=== PATIENT | female | born 1970 | race Caucasian/White ===

== ENCOUNTER 2016-12-02 16:43 | Inpatient (IN) | payer OTHER ==
--- NOTE | 2016-12-02 17:00 | ED EKG INTERP ---
EKG Interpretation - EKG Time of EKG reading by physician:: 16:58 EKG Read and Signed by:: Katerine Dillard EKG Interpretation (*Must complete 3 of following elements*): Abnormal (cannot rule out anterior infarct age undetermined) Rate: 87 Rhythm: nsr [place]: normal QRS: normal Attestation - Scribe Verification/Attestation Scribe:: Orquidea Massey Acting as Scribe for:: Katerine Dillard Scribe documention review:: This chart was documented by a scribe and accurately reflects the service the provider performed and the decisions made by the provider. Physician Attestation - Physician Attestation I, the provider, attest to the following statement:: Katerine Dillard Physician documentation Attestation:: This documentation recorded by the scribe accurately reflects the service I personally performed and the decisions made by me.
[2016-12-02] MEDS ORDERED: NS 1,000 ML IV PRN (17:03)
[2016-12-02 17:25] LABS: BASO% 0.3 % (0.0-0.8); EOS# 0.11 X1000 (0.0-0.7); EOS% 2.9 % (0.0-10.0); HEMATOCRIT 18.5 % (37.0-47.0); LYMPH# 1.63 X1000 (1.2-3.4); LYMPH% 43.6 % (20.5-51.1); MCH 18.4 PG (27-31); MCHC 28.1 g/dL (33-37); MCV 65.4 FL (81-99); NEUT% 45.2 % (42.2-75.2); PLT 177 X1000 (130-400); RBC 2.83 XMIL (4.2-5.4)
[2016-12-02 17:26] LABS: MANUAL DIFF NEEDED? NO
[2016-12-02 17:40] LABS: AGAP 12; ALBUMIN 3.3 g/dL (3.5-5.0); ALKALINE PHOSPHATASE 85 U/L (32-104); BUN 17 mg/dL (8-22); CALCIUM 8.6 mg/dL (8.8-10.2); CHLORIDE 101 mmol/L (98-107); COSMO 274; GOT 15 U/L (10-30); GPT 16 U/L (10-36); POTASSIUM 4.2 mmol/L (3.5-5.1); SODIUM 136 mmol/L (136-145); TCO2 23 mmol/L (25-35); TOTAL BILIRUBIN < 0.10 mg/dL (0.20-1.00)
[2016-12-02 17:46] LABS: INR 0.96; PROTIME 9.8 Seconds (9.2-11.7); PTT 27.6 Seconds (22.0-36.0)
--- NOTE | 2016-12-02 17:49 | PROVIDER DOCUMENTATION ---
HPI-General Adult - General Chief Complaint: Weakness Stated Complaint: WEAKNESS,LOW BLOOD Time Seen by Provider: 12/02/16 17:39 Source: patient Allergies/Adverse Reactions: Patient Allergies Allergy/AdvReac Type Severity Reaction Status Date / Time No Known Allergies Allergy Verified 09/21/13 15:13 Home Medications: Home Medication List Medication Instructions Recorded Confirmed Last Taken Type Hydrocodone/APAP 10 mg/325 mg 1 each PO Q8H #0 tablet 07/24/15 Unknown Rx [[place]-10] Lidocaine/Prilocaine Cream [Emla 0 gm TOP PRN PRN #0 tube 07/24/15 Unknown Rx Cream] Ondansetron [Zofran] 4 mg IV Q6H PRN PRN #0 vial 07/24/15 Unknown Rx Pregabalin [Lyrica] 225 mg PO BID #0 capsule 07/24/15 Unknown Rx Tizanidine [Zanaflex] 4 mg PO QHS #0 tablet 07/24/15 Unknown Rx Tramadol E.r. [Ultram ER] 200 mg PO DAILY #0 tablet 07/24/15 Unknown Rx - History of Present Illness -Gen Adult Nature of Presenting Problems: 45 y/o F with history of neuropathy, PUD with anemia presents with complaint of weakness, N/V, epigastric pain x 1 week. Epigastric pain occurs only after eating. Pain began after taking stanbacks for back pain. Emesis described as food, denies hematemesis or coffee ground emesis. Last BM 2 days ago (black unsure if black stools started before or after pepto). Reports associated weakness and SOB. She has been taking pepto and zantac OTC since onset of symptoms. Patient has had multiple blood transfusions in the past for anemia with the last being 3 years ago. She has been off daily PPI therapy for 3 years she is not on iron. GI in the past has been Dr. Bradley. Last EGD 2013. No PCP. 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 Location of Pain/Injury: reports: abdomen (epigastric) Pain Radiation: reports: no radiation Quality of Pain: reports: aching Severity: reports: moderate Onset/Duration: reports: 1 week ago Timing: reports: intermittent Review of Systems - Adult - REVIEW OF SYSTEMS - ADULT Constitutional: reports: no symptoms reported. denies: chills, fever Eyes: reports: no symptoms reported. denies: decreased vision, blurred vision Ears, Nose, Mouth & Throat: reports: no symptoms reported. denies: ear pain, hearing loss Cardiovascular: reports: chest pain (occasional. last time yesterday) Respiratory: reports: dyspnea on exertion, shortness of breath. denies: cough, wheezing Gastrointestinal: reports: abdominal pain (epigastric), nausea, vomiting Genitourinary: reports: no symptoms reported. denies: dysuria, hematuria Musculoskeletal: reports: no symptoms reported Integumentary: reports: no symptoms reported. denies: itching, rash Neurological: reports: no symptoms reported. denies: dizziness/vertigo, headache/migraines Psychiatric: reports: no symptoms reported Endocrine: reports: no symptoms reported Hematologic/Lymphatic: reports: see HPI Allergic/Immunologic: reports: no symptoms reported All Other Systems: Reviewed and Negative Past History - Adult - PAST MEDICAL HISTORY-ADULT Review of Records: reports: Nursing Assessment Review, Medications Reviewed Physical Exam-General - PHYSICAL EXAM-ADULT Initial Vital Signs Reviewed: Yes - CONSTITUTIONAL General Appearance: alert, no apparent distress, other (pale) - EYES Eyes: PERRL/EOMI, pink conjunctivae - HEAD, EARS, NOSE, MOUTH & THROAT HENMT: normocephalic/atraumatic, moist mucous membranes - NECK Neck: non-tender, full range of motion, supple - RESPIRATORY Respiratory: chest non-tender, lungs clear, normal breath sounds, no pleuratic chest pain, no respiratory distress, no accessory muscle use - CARDIOVASCULAR Cardiovascular: normal peripheral pulses, regular rate, rhythm, no edema, no gallop, no JVD, no murmur - GASTROINTESTINAL (ABDOMEN) Abdominal Exam: normal bowel sounds, non tender, soft - GENITOURINARY Rectal Exam: normal exam, normal rectal tone. negative: blood streaked stool, hemorrhoids - LYMPHATIC Lymphatic: no adenopathy - SKIN Integumentary: normal turgor, warm/dry, pallor - NEUROLOGIC Neurologic: grossly normal, no motor/sensory deficits - PSYCHIATRIC Psych/Mental Status: normal mood/affect, normal thought content, normal thought process, oriented x 3 Progress - PLAN OF CARE/RESULTS Progress/Plan/Lab Results: Laboratory Tests 12/02/16 12/02/16 12/02/16 17:02 17:02 17:02 WBC 3.74 L RBC 2.83 L Hgb 5.2 L* Hct 18.5 L MCV 65.4 L MCH 18.4 L MCHC 28.1 L RDW Std Deviation 17.1 H Plt Count 177 MPV 10.0 Immature Gran % (Auto) 0.0 Neut % (Auto) 45.2 Lymph % (Auto) 43.6 [place] % (Auto) 8.0 Eos % (Auto) 2.9 Baso % (Auto) 0.3 Immature Gran # (Auto) 0.00 Neut # (Auto) 1.69 Lymph # (Auto) 1.63 [place] # (Auto) 0.30 Eos # (Auto) 0.11 Baso # (Auto) 0.01 Segmented Neutrophils Cancelled Band Neutrophils Cancelled Lymphocytes Cancelled Monocytes Cancelled Eosinophils Cancelled Basophils Cancelled Metamyelocytes Cancelled Myelocytes Cancelled Promyelocytes Cancelled Nucleated RBCs Cancelled Atypical Lymphocytes Cancelled Blast Cells Cancelled Hypochromia Cancelled Vacuolization Cancelled Toxic Granulation Cancelled Dohle Bodies Cancelled Large Platelets Cancelled Polychromasia Cancelled Poikilocytosis Cancelled Basophilic Stippling Cancelled Anisocytosis Cancelled Microcytosis Cancelled Macrocytosis Cancelled Spherocytes Cancelled Sickle Cells Cancelled Target Cells Cancelled Ovalocytes Cancelled Stomatocytes Cancelled Garcia-Pease Bodies Cancelled Tracy Cells Cancelled Unidentified Cells Cancelled Schistocytes Cancelled PT 9.8 INR 0.96 PTT (Actin FS) 27.6 Sodium 136 Potassium 4.2 Chloride 101 Carbon Dioxide 23 L Anion Gap 12 BUN 17 Creatinine 0.6 Estimated GFR/1.73 m2 > 60 BUN/Creatinine Ratio 28 Glucose 104 Calculated Osmolality 274 Calcium 8.6 L Total Bilirubin < 0.10 L AST 15 ALT 16 Alkaline Phosphatase 85 Total Protein 6.0 L Albumin 3.3 L Globulin 2.7 Albumin/Globulin Ratio 1.2 Blood Type Antibody Screen Crossmatch 12/02/16 17:02 WBC RBC Hgb Hct MCV MCH MCHC RDW Std Deviation Plt Count MPV Immature Gran % (Auto) Neut % (Auto) Lymph % (Auto) [place] % (Auto) Eos % (Auto) Baso % (Auto) Immature Gran # (Auto) Neut # (Auto) Lymph # (Auto) [place] # (Auto) Eos # (Auto) Baso # (Auto) Segmented Neutrophils Band Neutrophils Lymphocytes Monocytes Eosinophils Basophils Metamyelocytes Myelocytes Promyelocytes Nucleated RBCs Atypical Lymphocytes Blast Cells Hypochromia Vacuolization Toxic Granulation Dohle Bodies Large Platelets Polychromasia Poikilocytosis Basophilic Stippling Anisocytosis Microcytosis Macrocytosis Spherocytes Sickle Cells Target Cells Ovalocytes Stomatocytes Garcia-Pease Bodies Tracy Cells Unidentified Cells Schistocytes PT INR PTT (Actin FS) Sodium Potassium Chloride Carbon Dioxide Anion Gap BUN Creatinine Estimated GFR/1.73 m2 BUN/Creatinine Ratio Glucose Calculated Osmolality Calcium Total Bilirubin AST ALT Alkaline Phosphatase Total Protein Albumin Globulin Albumin/Globulin Ratio Blood Type A NEGATIVE Antibody Screen NEGATIVE Crossmatch See Detail Orders Category Date Time Status Saline Loc DIRECTED Care 12/02/16 17:03 Active Transfuse .Give-Transfuse Care 12/02/16 18:23 Active CHEST-2 VIEWS [RAD] Stat Exams 12/02/16 17:52 Taken CBC WITH ELECTRONIC DIFF [HEME] Stat Lab 12/02/16 17:02 Completed COMPREHENSIVE METABOLIC PANEL [CHEM] Stat Lab 12/02/16 17:02 Completed OCCULT BLOOD NON-FECES Stat Lab 12/02/16 17:03 Uncollected OCCULT BLOOD SCREENING [STOOL] Stat Lab 12/02/16 17:03 Uncollected PRBC [LRPC (RED CELLS)] [BBK] Stat Lab 12/02/16 17:02 Results PROTIME WITH INR [COAG] Stat Lab 12/02/16 17:02 Completed PTT [COAG] Stat Lab 12/02/16 17:02 Completed TROPONIN T Stat Lab 12/02/16 17:55 Ordered TYPE & SCREEN [BBK] Stat Lab 12/02/16 17:02 Results 0.9% Sodium Chloride Inj [Ns] 1,000 ml Med 12/02/16 17:03 Active IV 125 mls/hr Ondansetron [Zofran] Med 12/02/16 17:54 Discontinued 4 mg IV NOW ONE Pantoprazole [Protonix] Med 12/02/16 17:54 Discontinued 40 mg IV NOW ONE Sodium Chloride 0.9% Med 12/02/16 17:54 Discontinued 10 ml INJ NOW ONE EKG [EKG] Stat Ther 12/02/16 17:52 Ordered Vital Signs Temp Pulse Resp BP Pulse Ox 12/02/16 16:54 98.3 F 90 18 145/87 100 No Known Allergies Allergy (Verified 09/21/13 15:13) Hydrocodone/APAP 10 mg/325 mg [[place]-10] 1 each PO Q8H #0 tablet 07/24/15 Lidocaine/Prilocaine Cream [Emla Cream] 0 gm TOP PRN PRN #0 tube 07/24/15 Ondansetron [Zofran] 4 mg IV Q6H PRN PRN #0 vial 07/24/15 Pregabalin [Lyrica] 225 mg PO BID #0 capsule 07/24/15 Tizanidine [Zanaflex] 4 mg PO QHS #0 tablet 07/24/15 Tramadol E.r. [Ultram ER] 200 mg PO DAILY #0 tablet 07/24/15 Laboratory 12/02/16 12/02/16 12/02/16 17:02 17:02 17:02 WBC RBC Hgb Hct MCV MCH MCHC RDW Std Deviation Plt Count MPV Immature Gran % (Auto) Neut % (Auto) Lymph % (Auto) [place] % (Auto) Eos % (Auto) Baso % (Auto) Immature Gran # (Auto) Neut # (Auto) Lymph # (Auto) [place] # (Auto) Eos # (Auto) Baso # (Auto) Segmented Neutrophils Band Neutrophils Lymphocytes Monocytes Eosinophils Basophils Metamyelocytes Myelocytes Promyelocytes Nucleated RBCs Atypical Lymphocytes Blast Cells Hypochromia Vacuolization Toxic Granulation Dohle Bodies Large Platelets Polychromasia Poikilocytosis Basophilic Stippling Anisocytosis Microcytosis Macrocytosis Spherocytes Sickle Cells Target Cells Ovalocytes Stomatocytes Garcia-Pease Bodies Tracy Cells Unidentified Cells Schistocytes PT 9.8 INR 0.96 PTT (Actin FS) 27.6 Sodium 136 Potassium 4.2 Chloride 101 Carbon Dioxide 23 L Anion Gap 12 BUN 17 Creatinine 0.6 Estimated GFR/1.73 m2 > 60 BUN/Creatinine Ratio 28 Glucose 104 Calculated Osmolality 274 Calcium 8.6 L Total Bilirubin < 0.10 L AST 15 ALT 16 Alkaline Phosphatase 85 Total Protein 6.0 L Albumin 3.3 L Globulin 2.7 Albumin/Globulin Ratio 1.2 Blood Type A NEGATIVE Antibody Screen NEGATIVE Crossmatch See Detail 12/02/16 17:02 WBC 3.74 L RBC 2.83 L Hgb 5.2 L* Hct 18.5 L MCV 65.4 L MCH 18.4 L MCHC 28.1 L RDW Std Deviation 17.1 H Plt Count 177 MPV 10.0 Immature Gran % (Auto) 0.0 Neut % (Auto) 45.2 Lymph % (Auto) 43.6 [place] % (Auto) 8.0 Eos % (Auto) 2.9 Baso % (Auto) 0.3 Immature Gran # (Auto) 0.00 Neut # (Auto) 1.69 Lymph # (Auto) 1.63 [place] # (Auto) 0.30 Eos # (Auto) 0.11 Baso # (Auto) 0.01 Segmented Neutrophils Cancelled Band Neutrophils Cancelled Lymphocytes Cancelled Monocytes Cancelled Eosinophils Cancelled Basophils Cancelled Metamyelocytes Cancelled Myelocytes Cancelled Promyelocytes Cancelled Nucleated RBCs Cancelled Atypical Lymphocytes Cancelled Blast Cells Cancelled Hypochromia Cancelled Vacuolization Cancelled Toxic Granulation Cancelled Dohle Bodies Cancelled Large Platelets Cancelled Polychromasia Cancelled Poikilocytosis Cancelled Basophilic Stippling Cancelled Anisocytosis Cancelled Microcytosis Cancelled Macrocytosis Cancelled Spherocytes Cancelled Sickle Cells Cancelled Target Cells Cancelled Ovalocytes Cancelled Stomatocytes Cancelled Garcia-Pease Bodies Cancelled [place] Cells Cancelled Unidentified Cells Cancelled Schistocytes Cancelled PT INR PTT (Actin FS) Sodium Potassium Chloride Carbon Dioxide Anion Gap BUN Creatinine Estimated GFR/1.73 m2 BUN/Creatinine Ratio Glucose Calculated Osmolality Calcium Total Bilirubin AST ALT Alkaline Phosphatase Total Protein Albumin Globulin Albumin/Globulin Ratio Blood Type Antibody Screen Crossmatch - REASSESSMENT Reassessment #1 Time Reassessed: 18:28 (Patient with symptomatic anemia (Hgb 5.2 Hct 18.5) likely secondary to NSAID gastritis vs. PUD. Hemoccult, trop, ekg, cxr pending. Discussed with Dr. Hinojosa. Will admit.) Status: unchanged - CONSULTS/PCP/HOSPITALIST Notification #1 *Consult/PCP/Hospitalist*: Dr. Hinojosa Time Discussed: 18:33 (Advised to give 2 units and admit) Consult Disposition: Admit Departure - Departure Time of Disposition Order: 18:28 DIAGNOSIS: Symptomatic anemia, PUD (peptic ulcer disease) Disposition: ADMITTED INPATIENT 09 Certified Medical Emergency: Emergent Condition: Good Attestation - Physician/ MITCHELL Attestation Patient care was provided by Advanced Practice Provider:: Yes Advanced Practice Provider:: Jazmín Larios Advanced Practice Provider documentation review:: The Mid-level provider documentation, treatment plan and medical decision making was reviewed by the physician who agrees with all treatment and medical decision making by the MLP.
[2016-12-02] MEDS ORDERED: PROTONIX IV ONE (17:54)
[2016-12-02] MEDS ORDERED: ZOFRAN IV ONE (17:54)
[2016-12-02] MEDS ORDERED: SODIUM CHLORIDE 0.9% INJ ONE (17:54)
[2016-12-02 18:34] LABS: HEMOGLOBIN 5.2 g/dL (12.0-16.0)
[2016-12-02] MEDS ORDERED: OPANA ER PO SCH (21:00)
[2016-12-02] MEDS: LYRICA PO SCH ×3 (21:00→22:27)
[2016-12-02] MEDS ORDERED: SODIUM CHLORIDE 0.9% INJ SCH (21:33)
[2016-12-02] MEDS ORDERED: ZOFRAN IV PRN (21:33)
[2016-12-02] MEDS: NORCO-10 PO SCH (22:28)
[2016-12-02 22:41] LABS: IRON SATURATION 2 %; TIBC 484 ug/dL
[2016-12-02 22:42] LABS: TOTAL IRON 8 ug/dL (49-151); UNBOUND IRON 476 ug/dL (112-346)
[2016-12-02] MEDS: MS CONTIN PO SCH (23:46)
[2016-12-03] MEDS ORDERED: PROTONIX 80 MG in NS 80 ML IV SCH (00:15)
--- NOTE | 2016-12-03 00:30 | HISTORY AND PHYSICAL ---
PRIMARY CARE PROVIDER: Dr. Long. He is a pain provider apparently. GASTROINTESTINAL SPECIALIST: Dr. Soriano. CHIEF COMPLAINT: Weakness, chronic anemia, and blood in stool. HISTORY OF PRESENT ILLNESS: This is a 45-year-old female with a history of iron deficiency anemia, chronic pain and upper GI bleeding. States that she has had increased weakness. Noticed black tarry stools and had difficulty with her balance. She came into the ER feeling as though she needed a blood transfusion. She states that she has known PUD as well as chronic anemia related to upper GI bleeding as well as iron deficiency anemia. 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 Laboratory data in the ER was completed which did reveal a hemoglobin of 5.2 and hematocrit of 18.5. Two units packed red blood cells were type and crossed and will be transfused. The patient will be admitted for further evaluation and treatment. PAST MEDICAL HISTORY: 1. Chronic anemia due to upper GI bleeding as well as iron deficiency anemia. Last blood transfusion in 2013. 2. 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 3. Chronic pain related to her lower extremity neuropathy with chronic opioid use. 4. PUD. PREVIOUS SURGICAL HISTORY: 1. Laparotomy for small bowel resection for angiodysplasia. 2. Back surgery. 3. Cholecystectomy. 4. Tubal ligation. 5. Left knee scope. 6. Left Port-A-Cath placement. SOCIAL HISTORY: . Lives in [place]. Smokes 1 pack of cigarettes per day. The perils of smoking were gone over with the patient. She states that she is going to try to quit on her birthday which is coming up in 2 days. She denies alcohol or illicit drug use or abuse. FAMILY HISTORY: Positive for CVA and hypertension in first-degree relatives. ALLERGIES: No known allergies. HOME MEDICATIONS: 1. [place] 10 one p.o. q.8h. 2. Neurontin 300 mg p.o. t.i.d. 3. Opana ER 20 mg p.o. b.i.d. 4. Lyrica 300 mg p.o. b.i.d. REVIEW OF SYSTEMS: Fourteen point review of systems conducted with the patient. Pertinent positives listed above in the HPI. All other systems negative. PHYSICAL EXAMINATION: VITAL SIGNS: Temperature 97.6 degrees, pulse 85, respirations 19, blood pressure 115/81, oxygen saturation 100% on room air. GENERAL: This is a pleasant 45-year-old female. Alert and oriented x4. Answers all questions appropriately. No acute distress lying in the ER stretcher. HEENT: Head is atraumatic, normocephalic. Pupils equal, round, reactive to light. Extraocular eye movement intact. Sclerae is anicteric. Conjunctivae is pale. Oral mucosa is mildly dry. NECK: Supple. No JVD. No thyromegaly. Trachea is midline. No cervical lymphadenopathy. CARDIAC: S1-S2 appreciated. Regular rhythm. No murmurs, gallops, rubs. RESPIRATORY: Clear to auscultation bilaterally. No rhonchi, wheezes or rales. Symmetrical rise and fall with respirations. ABDOMEN: Soft. Mildly tender in epigastric area. Nondistended. Bowel sounds present in all 4 quadrants normoactive. No pulsatile mass. No organomegaly. EXTREMITIES: No clubbing, cyanosis, or edema. 2+ pedal pulses. NEUROLOGICAL: Alert and oriented x3. Cranial nerves 2 through 12 grossly intact. GENITOURINARY: Patient voids, otherwise deferred. LABORATORY DATA: WBC 3.74, hemoglobin 5.2, hematocrit 18.5, platelet count 177, 000. Coags within normal limits. Sodium 136, potassium 4.2, chloride of 101, carbon dioxide 23, BUN 17, creatinine 0.6, glucose 104. ASSESSMENT AND PLAN: 1. Upper gastrointestinal bleed. We will consult Dr. Bradley. Place on Protonix gtt and monitor; A dose was given in the emergency room. plan for endoscopy in am 2. Acute on chronic anemia. According to the patient related to iron deficiency and she does not take iron supplementation. We will order anemia panel. 3. Chronic pain. Continue home medications. 4. Tobacco use and abuse. As noted above, smoking cessation was gone over with the patient. She states that she is going to attempt quitting in 2 days on her birthday. Further recommendations per patient clinical course. Dictated by NATASHA Carrero for Huber Simmons MD pt examined, agree with above; APENOT MTDD
[2016-12-03 01:22] LABS: HEMATOCRIT 22.9 % (37.0-47.0); HEMOGLOBIN 7.1 g/dL (12.0-16.0)
--- NOTE | 2016-12-03 05:16 | EKG Report ---
Test Performed on : 12/02/2016 4:58:33 PM Test Reason : SOB, CP Blood Pressure : / mmHG Vent. Rate : 087 BPM Atrial Rate : 087 BPM P-R Int : 136 ms QRS Dur : 088 ms QT Int : 370 ms P-R-T Axes : 078 083 055 degrees QTc Int : 445 ms Normal sinus rhythm. Cannot rule out Anterior infarct , age undetermined Abnormal ECG No previous ECGs available Unconfirmed Result
[2016-12-03] MEDS: NORCO-10 PO SCH (06:09)
[2016-12-03 06:46] LABS: AGAP 9; BUN 13 mg/dL (8-22); CALCIUM 7.9 mg/dL (8.8-10.2); CHLORIDE 106 mmol/L (98-107); COSMO 278; POTASSIUM 4.6 mmol/L (3.5-5.1); SODIUM 139 mmol/L (136-145); TCO2 24 mmol/L (25-35)
[2016-12-03 07:20] LABS: BASO% 0.3 % (0.0-0.8); EOS% 2.7 % (0.0-10.0); HEMATOCRIT 23.8 % (37.0-47.0); HEMOGLOBIN 7.3 g/dL (12.0-16.0); LYMPH# 1.01 X1000 (1.2-3.4); LYMPH% 26.8 % (20.5-51.1); MANUAL DIFF NEEDED? NO; MCH 21.8 PG (27-31); MCHC 30.7 g/dL (33-37); MONO# 0.34 X1000 (0.11-0.59); MPV 10.2 FL (7.4-10.4); NEUT% 61.2 % (42.2-75.2); PLT 120 X1000 (130-400); RBC 3.35 XMIL (4.2-5.4)
[2016-12-03 07:23] VITALS: BP 111/73
--- NOTE | 2016-12-03 07:45 | Diag Imaging Result Document ---
PROCEDURE NAME: CHEST-2 VIEWS - 12/02/2016 CHEST X-RAY, 2 VIEWS: COMPARISON: 09/21/2013. FINDINGS: Stable left chest port in good position. The lungs are clear. Heart size is normal. No pneumothorax or pleural effusion. IMPRESSION: Negative exam.
[2016-12-03] MEDS: LYRICA PO SCH (08:25)
[2016-12-03] MEDS: MS CONTIN PO SCH (08:25)
[2016-12-03] MEDS ORDERED: NEURONTIN PO SCH (09:00)
[2016-12-03] MEDS ORDERED: PROTONIX IV SCH (09:00)
[2016-12-03] MEDS ORDERED: HEPARIN ONE (09:32)
--- NOTE | 2016-12-04 11:13 | DISCHARGE SUMMARY ---
ADMISSION DATE: 12/02/2016 DISCHARGE DATE: 12/03/2016 Patient left AMA from the ED. PERTINENT PROCEDURES: Chest x-ray was negative. CONSULTATIONS: None. DISCHARGE DIAGNOSES: 1. Upper GI bleed. The patient was placed on a Protonix drip. Made NPO for endoscopy with GI. Again patient left AMA. 2. Acute on chronic anemia. According to the patient related to iron deficiency. She is not taking iron supplementation. Anemia panel was ordered. Again patient left AMA. 3. Chronic pain. Home medications were continued. 4. Tobacco use and abuse. Smoking cessation was gone over with the patient. She states that she is going to attempt quitting in 2 days on her birthday. Again the patient left AMA. HOSPITAL COURSE: Briefly, Ms. Guerrier is a 45-year-old female with a history of iron-deficiency anemia, chronic pain, upper GI bleeding. States that she had increased weakness, noticed black tarry stools and had difficulty with her balance. Came to the ED feeling as though she needed a blood transfusion. She stated she has known PUD as well as chronic anemia related to upper GI bleeding as well as iron deficiency anemia. The patient also stated she has zinc poisoning in the past which caused her to have chronic neuropathy of the lower extremities which she takes chronic pain medication for. Laboratory data was completed in the ED which revealed hemoglobin and hematocrit of 5 and 18. Two units of packed red blood cells were typed and crossed to be transfused. The patient was admitted for further evaluation and treatment. She was started on Protonix drip as well as GI was consulted and made NPO for a scope in the a.m. however the patient signed out AMA stating that she had a family emergency about her grandson in [place]. It was addressed if she understood that her blood was still very low and she was at risk for losing more blood because of the source of the bleeding had not been found yet. She said her said that they understood the risks of leaving against medical advice and still wanted to sign AMA papers. Dr. Hinojosa was notified at 9:25. Patient was fine. She left with her . They were directed to seek medical attention if her symptoms worsen. Discharge time 30 minutes. Dictated by NATASHA Ding for Joe Aguilar MD
== END 2016-12-03 09:35 | disposition left against medical advice (07) | DRG 812 ==
LOC: ED 16:43 → EDIPHOLD 21:31
PROVIDERS: ATTEND Internal Medicine
PROC: 30233N1 Transfusion of Nonautologous Red Blood Cells into Peripheral Vein, Percutaneous Approach (ICD-10-PCS; principal; 2016-12-02)
DX: D64.9 Anemia, unspecified (principal); G62.9 Polyneuropathy, unspecified; K92.1 Melena; F17.210 Nicotine dependence, cigarettes, uncomplicated; Z91.19 Patient's noncompliance with other medical treatment and regimen; Z79.899 Other long term (current) drug therapy; Z79.891 Long term (current) use of opiate analgesic; Z87.11 Personal history of peptic ulcer disease; Z82.49 Family history of ischemic heart disease and other diseases of the circulatory system; Z82.3 Family history of stroke
CPT/HCPCS: 36430; 71020; 80048; 80053; 82270; 82607; 82728; 82746; 82948; 83540; 83550; 84443; 84484; 85014; 85018; 85025; 85610; 85730; 86850; 86900; 86901; 86920; 93005; 96365; 96366; 96375; C9113; J2405; P9016; 99285-25; S0164